=== PATIENT | female | born 1995 | race Asian ===

== ENCOUNTER 2023-07-03 20:17 | Emergency (ER) | payer MEDICAID ==
[~2023-07-03] VITALS: Ht 167.6 cm; Wt 90.0 kg
[2023-07-03] MEDS ORDERED: IBUP-1455 PO (23:01)
[2023-07-03 23:16] VITALS: BP 148/84; PULSE 109; RESP 20; TEMP 98; O2SAT 94
== END 2023-07-03 23:16 | disposition home or self-care (01) ==
LOC: ER 20:17
DX: H92.02 Otalgia, left ear (principal); I10 Essential (primary) hypertension; J06.9 Acute upper respiratory infection, unspecified